=== PATIENT | male | born 1960 | race Caucasian/White ===

== ENCOUNTER 2019-02-09 13:57 | Inpatient (IN) | payer OTHER, MEDICAID ==
[~2019-02-09] VITALS: Ht 157.5 cm; Wt 59.9 kg
[~2019-02-09 13:57] MED LIST: DUTA0.5S2 PO; LORA10TA19 PO; ORTEZLA PO; TAMS0.4C96 PO
--- NOTE | 2019-02-09 13:57 | NUR ---
Patient BIBA BLS, transferred to bed 9. RN evaluating patient at bedside.
[2019-02-09 14:07] VITALS: BP 117/65
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
--- NOTE | 2019-02-09 14:55 | NUR ---
PT RESPONDS APPROPRIATELY TO QUESTIONS BY NODDING YES OR NO. NO SIGNS AND SYMPTOMS OF DISTRESS NOTED. SAFETY ENSURED. WILL CONTINUE TO MONITOR.
--- NOTE | 2019-02-09 15:00 | NUR ---
DR HOANG AT BEDSIDE FOR PT EVALUATION
--- NOTE | 2019-02-09 15:03 | NUR ---
radiology at bedside
--- NOTE | 2019-02-09 15:10 | NUR ---
Dr. Ortega evaluating patient at bedside.
[2019-02-09 15:11] LABS: BASOPHILS # (AUTO) 0.1 K/uL (0.00-0.22); EOSINOPHILS # (AUTO) 0.3 K/uL (0-0.4); EOSINOPHILS % (AUTO) 5.7 % (0.0-4.0); HEMATOCRIT 39.3 % (36-52); HEMOGLOBIN 12.8 g/dL (12.0-18.0); LYMPHOCYTES # (AUTO) 0.8 K/uL (2.0-11.5); LYMPHOCYTES % (AUTO) 12.9 % (20.5-51.1); MEAN CORPUSCULAR HEMOGLOBIN 33 pg (27-31); MEAN CORPUSCULAR HGB CONC 32 g/dL (33-37); MEAN CORPUSCULAR VOLUME 100.8 fL (80-94); MONOCYTES # (AUTO) 0.6 K/uL (0.8-1.0); MONOCYTES % (AUTO) 10.8 % (1.7-9.3); NEUTROPHILS % (AUTO) 68.6 % (42.2-75.2); PLATELET COUNT (AUTO) 279 K/uL (140-450); RED CELL DISTRIBUTION WIDTH 16.1 % (11.6-13.7); WHITE BLOOD COUNT (AUTO) 5.8 K/uL (4.8-10.8)
[2019-02-09 15:13] LABS: APPEARANCE,URINE CLEAR (CLEAR); BILIRUBIN,URINE NEGATIVE (NEGATIVE); BLOOD, URINE 3+ (NEGATIVE); COLOR,URINE YELLOW (YELLOW); LEUKOCYTE ESTERASE ,URINE NEGATIVE (NEGATIVE); NITRITE, URINE NEGATIVE (NEGATIVE); PH,URINE 5.5 (5.0-9.0); UGLUCOSE NEGATIVE (NEGATIVE)
--- NOTE | 2019-02-09 15:15 | NUR ---
Patient taken to CT scan via gurney by CBIT A/S.
[2019-02-09 15:18] LABS: BARBITURATE, URINE NEG. ng/ml (NEG <=200); BENZODIAZEPINE, URINE NEG. ng/mL (NEG <=200); CANNABINOID, URINE NEG. ng/mL (NEG <=50); COCAINE, URINE NEG. ng/mL (NEG <=300); OPIATE, URINE NEG. ng/mL (NEG <=2000); PHENCYCLIDINE SCREEN,URINE NEG. ng/mL (NEG <=25)
[2019-02-09 15:20] LABS: ANION GAP 11.7 (8-16); CARBON DIOXIDE 30.3 mmol/L (21-32); CREATININE 1.2 mg/dL (0.7-1.3)
--- NOTE | 2019-02-09 15:26 | NUR ---
PT TAKEN BACK TO ROOM FROM CT VIA BED BY HOPPER FILLER
[2019-02-09 15:32] LABS: ALBUMIN 2.9 g/dL (3.4-5.0); TOTAL BILIRUBIN 0.3 mg/dL (0.0-1.0)
[2019-02-09 15:37] LABS: RBC,URINE >20 (MANY) /HPF (0-5)
[2019-02-09 15:38] LABS: WBC,URINE 0-5 /HPF (0-5)
--- NOTE | 2019-02-09 16:00 | NUR ---
caregiver at bedside. pt asleep. easily arousable by touch. no signs and symptoms of distress noted. vss. safety ensured. will continue to monitor.
[2019-02-09] MEDS ORDERED: MEX2.5 PO (17:07)
[2019-02-09] MEDS ORDERED: SENN-73 PO (17:07)
[2019-02-09] MEDS ORDERED: [UNRECOGNIZED DRUG - CODE] PO (17:07)
[2019-02-09] MEDS ORDERED: ACET-2619 PO (17:07)
[2019-02-09] MEDS ORDERED: PROP10DR3 OP ×2 (17:07→19:36)
[2019-02-09] MEDS ORDERED: SINE25 PO (17:07)
[2019-02-09] MEDS ORDERED: BUS5 PO (17:07)
[2019-02-09] MEDS ORDERED: PANT40EC PO (17:07)
[2019-02-09] MEDS ORDERED: LEVE750T8 PO (17:07)
[2019-02-09] MEDS ORDERED: [UNRECOGNIZED DRUG - CODE] TP ×2 (17:07→19:40)
[2019-02-09] MEDS ORDERED: NITR0.4T2 SL (17:07)
[2019-02-09] MEDS ORDERED: TAMS0.4C96 PO (17:07)
[2019-02-09] MEDS ORDERED: MONT5CTB22 PO (17:07)
[2019-02-09] MEDS ORDERED: KEN.1O TP ×2 (17:07→19:40)
[2019-02-09] MEDS ORDERED: HYD2.5O TP ×2 (17:07→19:36)
[2019-02-09] MEDS ORDERED: BACI1PAC4 TP (17:07)
[2019-02-09] MEDS ORDERED: FLUO0.052 TP (17:07)
[2019-02-09] MEDS ORDERED: DEXT 5% /NACL 0.9% 1,000 ML IV SCH (17:08)
[2019-02-09] MEDS ORDERED: NACL 0.9% 1,000 ML IV SCH (17:08)
[2019-02-09] MEDS ORDERED: LORazepam 2 MG/ML VIAL IM/IVP PRN (17:10)
[2019-02-09] MEDS ORDERED: ONDANSETRON 4 MG/2 ML VIAL IM/IVP PRN (17:10)
[2019-02-09] MEDS ORDERED: DOCUSATE SODIUM 100 MG GELCAP PO PRN (17:10)
[2019-02-09] MEDS ORDERED: MECLIZINE 25 MG TAB PO PRN (17:20)
--- NOTE | 2019-02-09 17:40 | NUR ---
Patient will be admitted to care of Dr Flores. Admited to Tele. Will go to room 110 b]. Belongings list completed. Report to CLAUDIA Bruno.
[2019-02-09 17:44] LABS: PROTHROMBIN TIME 9.9 secs (10.8-13.4)
[2019-02-09 17:45] VITALS: BP 107/71
--- NOTE | 2019-02-09 17:45 | NUR ---
RECEIVED REPORT FROM EMERGENCY ROOM NURSE FOR CONTINUITY OF CARE. PT IN STABLE CONDITION. RESPIRATIONS EVEN AND UNLABORED, ROOM AIR. IV INTACT AND PATENT. SAFETY MEASURES IN PLACE. SEIZURE PRECAUTIONS IN PLACE. BED IN LOW POSITION. BED ALARM ON. CALL LIGHT AT BEDSIDE. WILL CONTINUE TO MONITOR.
[2019-02-09 17:51] LABS: CHOL/HDL RATIO 2.9 (1-4.5)
[2019-02-09 18:07] LABS: LIPASE 79 U/L (73-393)
[2019-02-09 18:08] LABS: ACETAMINOPHEN < 0.5 ug/ml (10-30); SALICYLATE < 2.8 mg/dL (2.8-20.0); THYROID STIMULATING HORMONE 3.36 uIU/mL (0.34-3.74)
--- NOTE | 2019-02-09 19:16 | NUR ---
GAVE REPORT TO KELP CUTTER NURSE FOR CONTINUITY OF CARE. PT IN STABLE CONDITION.
--- NOTE | 2019-02-09 19:17 | NUR ---
RECEIVED REPORT FROM AM NURSE. PT IN BED SLEEPING IN LEFT LATERAL. PT OPEN EYES TO TOUCH. PT NON-RESPONSIVE AT THIS TIME. FLACC 0. ON ROOM AIR. BREATHING UNLABORED. LEFT FOREARM 22G INTACT AND PATENT TO FLUSH. PT ON SEIZURE PRECAUTIONS, SIDE RAILS PADDED. PT ON FALL PRECAUTION, BED ALARM ON, BED IN LOWEST POSITION. PT HELMET AT BEDSIDE. URINAL AT BEDSIDE. CALL LIGHT WITHIN REACH. WILL CONTINUE TO MONITOR.
[2019-02-09] MEDS ORDERED: ATA25 PO (19:36)
[2019-02-09] MEDS ORDERED: NITROGLYCERIN 0.4 MG TAB SL PRN (19:40)
[2019-02-09 20:00] VITALS: BP 115/65
[2019-02-09] MEDS ORDERED: LORazepam 2 MG/ML VIAL IVP PRN (20:10)
[2019-02-09] MEDS ORDERED: PROPYLENE GLYCOL OP SCH (21:00)
[2019-02-09] MEDS ORDERED: MINOCYCLINE 100MG CAPSULE PO SCH (21:00)
[2019-02-09] MEDS ORDERED: PEG OP SCH (21:00)
[2019-02-09] MEDS: busPIRone 5 MG TAB PO SCH (21:00)
[2019-02-09] MEDS ORDERED: TRIAMCINOLONE 0.1% OINT 15 GM TUBE TP SCH (21:00)
[2019-02-09] MEDS: SENNA 8.6 MG TAB PO SCH (21:00)
[2019-02-09] MEDS ORDERED: WITCH HAZEL TP SCH (21:00)
[2019-02-09] MEDS ORDERED: FLUOCINONIDE 0.05% TP SCH (21:00)
[2019-02-09] MEDS ORDERED: levETIRAcetam 1,500 MG in NACL 0.9% 100 ML IV SCH (21:00)
--- NOTE | 2019-02-09 21:05 | NUR ---
ATTEMPTED TO GIVE PT PO MEDICATIONS. PT NOT RESPONSIVE TO NAME. PT OPENS EYES TO SOUND BUT NOT TO NAME. PT WITHDRAWALS HAND WHEN ARM IS MOVED. NURSE EXPLAINED TO PT THAT IT WAS TIME FOR MEDICATION. PT NON-VERBAL AND CONTINUES TO KEEP EYES CLOSED. BREATHING EQUAL AND UNLABORED. NO VISIBLE SIGNS OF DISTRESS. DR. CONTRERAS AWARE OF PT REFUSAL TO TAKE MEDICATION.
[2019-02-09] MEDS ORDERED: levETIRAcetam 100 MG/ML VIAL IV ONE (21:37)
--- NOTE | 2019-02-09 21:55 | NUR ---
PHARMACY CALLED TO CLARIFY MED ORDERS FOR TRIAMCIOLONE AND FLUCINOIDE. PHARMACY ASKED TO CLARIFY IF MINOCYCLINE IS A HOME MEDICATION. PER DR. EL ERVIN TO USE TRIMACIOLONE. MINOCYCLINE IS A HOME MEDICATION. WILL ENDORSE WITH AM NURSE TO CALL FOR MEDICATION TO BE BROUGHT FROM HOME.
--- NOTE | 2019-02-09 23:57 | NUR ---
VITALS TAKEN. PT SLEEPING WITH ARMS CROSSED. PT MOVES WITH SHAKING BUT WILL NOT UNCROSS ARMS. NURSE EXPLAINS THE NEED TO TAKE VITALS. ATTEMPTED TO UNCROSS ARMS AND PT OPENS EYES BUT IS STILL NON-VERBAL. PT PROCEEDS TO RE-CROSS ARMS. BP TAKEN ON RIGHT LEG, PT COMPLIANT. MOTTLER OPERATOR ASKED TO INFORM NURSE WHEN PT URINATES. MOTTLER OPERATOR VERBALIZES UNDERSTANDING. WILL CONTINUE TO MONITOR.
[2019-02-10] VITALS (8 sets, daily range): BP systolic 103–146; BP diastolic 57–83
--- NOTE | 2019-02-10 01:12 | NUR ---
LEFT UPPER FOREARM IV 22G D/C DUE TO OCCLUSION. CANNULA INTACT UPON D/C. NEW IV ACCESS STARTED ON LEFT LOWER FOREARM 22G. PT TOLERATED WELL.
--- NOTE | 2019-02-10 02:37 | NUR ---
ROUNDED ON PT. PT SLEEPING, BREATHING EQUAL AND UNLABORED. NO VISIBLE SIGNS OF DISTRESS. WILL CONTINUE TO MONITOR.
--- NOTE | 2019-02-10 04:00 | NUR ---
RN TRAINING PRESSED CALL LIGHT FOR NURSE. PT STANDING AT SIDE OF BED WITH RN TRAINING. NURSE ASKED PT IF HE NEEDED TO USE THE BATHROOM. PT NODDED HIS HEAD YES. NURSE AND RN TRAINING ASSISTED PT TO BATHROOM. PT PROCEEDED TO URINATE. BED WAS CLEANED, PT POSITIONED FOR COMFORT. VITALS TAKEN AT THIS TIME. PT ABLE TO VERBALIZE AND IS COOPERATIVE WITH NURSE AND RN TRAINING.
--- NOTE | 2019-02-10 06:10 | NUR ---
ROUNDED ON PT. PT SITTING AWAKE IN BED. FLACC 0. BED ALARM ON, BED IN LOWEST POSITION. URINAL AT BEDSIDE. CALL LIGHT WITHIN REACH.
[2019-02-10 06:59] LABS: BASOPHILS # (AUTO) 0.1 K/uL (0.00-0.22); BASOPHILS % (AUTO) 2.5 % (0.0-2.0); EOSINOPHILS # (AUTO) 0.3 K/uL (0-0.4); EOSINOPHILS % (AUTO) 7.3 % (0.0-4.0); HEMATOCRIT 38.7 % (36-52); HEMOGLOBIN 12.6 g/dL (12.0-18.0); LYMPHOCYTES # (AUTO) 0.5 K/uL (2.0-11.5); LYMPHOCYTES % (AUTO) 12.6 % (20.5-51.1); MEAN CORPUSCULAR HEMOGLOBIN 33 pg (27-31); MEAN CORPUSCULAR HGB CONC 33 g/dL (33-37); MEAN CORPUSCULAR VOLUME 100.6 fL (80-94); MONOCYTES # (AUTO) 0.5 K/uL (0.8-1.0); NEUTROPHILS # (AUTO) 2.8 K/uL (1.8-7.7); NEUTROPHILS % (AUTO) 65.6 % (42.2-75.2); PLATELET COUNT (AUTO) 243 K/uL (140-450); RED BLOOD CELL COUNT(AUTO) 3.85 MIL/uL (4.20-6.10); RED CELL DISTRIBUTION WIDTH 16.1 % (11.6-13.7); WHITE BLOOD COUNT (AUTO) 4.3 K/uL (4.8-10.8)
--- NOTE | 2019-02-10 07:05 | NUR ---
ENDORSED PT TO AM NURSE. PT STABLE AT THIS TIME.
--- NOTE | 2019-02-10 07:06 | NUR ---
RECEIVED REPORT FROM DIAGRAMMER NURSE. PATIENT SITTING DOWN IN BED COMFORTABLY. NO DISTRESS NOTED. DENIES ANY PAIN. AAOX2, CALM, COOPERATIVE, SKIN COLOR APPROPRIATE TO ETHNICITY, WARM TO TOUCH. HAS PSORIASIS RASHES/PATCHES THROUGHOUT BODY. IV SITE INTACT, PATENT, AND INFUSING IVF PER MD ORDERS. ABDOMEN SOFT, NON-DISTENDED. LUNGS CTA ON ALL LOBES. REVIEWED PLAN OF CARE WITH PATIENT. PATIENT VERBALIZED UNDERSTANDING. SAFETY MEASURES IN PLACE, CALL LIGHT WITHIN REACH. WILL CONTINUE TO MONITOR.
[2019-02-10 07:32] LABS: ANION GAP 10.4 (8-16); CARBON DIOXIDE 30.4 mmol/L (21-32); POTASSIUM 3.8 mmol/L (3.5-5.1)
[2019-02-10 07:38] LABS: PHOSPHORUS 3.2 mg/dL (2.5-4.9)
[2019-02-10 08:11] LABS: T4 (THYROXINE) 5.2 ug/dL (4.5-12.0)
[2019-02-10] MEDS ORDERED: COMMUNICATION ORDER MC PRN (08:35)
[2019-02-10] MEDS: busPIRone 5 MG TAB PO SCH ×2 (08:49→21:18)
[2019-02-10] MEDS: levETIRAcetam 500 MG TAB PO SCH ×2 (08:50→21:17)
[2019-02-10] MEDS: SENNA 8.6 MG TAB PO SCH ×2 (08:50→21:17)
[2019-02-10] MEDS: MONTELUKAST SODIUM 10 MG TAB PO SCH (08:50)
[2019-02-10] MEDS: PANTOPRAZOLE 40 MG TABEC PO SCH (08:50)
[2019-02-10] MEDS: TAMSULOSIN 0.4 MG CAP PO SCH (08:50)
[2019-02-10] MEDS: HYDROCORTISONE 2.5% OINT 30 GM TUBE TP SCH ×2 (08:53→21:07)
[2019-02-10] MEDS: TRIAMCINOLONE 0.1% OINT 15 GM TUBE TP SCH ×2 (08:53→21:07)
[2019-02-10] MEDS ORDERED: METHOTREXATE 2.5 MG TAB PO SCH (09:00)
[2019-02-10] MEDS ORDERED: levETIRAcetam 500 MG TAB PO SCH (09:00)
--- NOTE | 2019-02-10 09:10 | NUR ---
PATIENT HAS BEEN SCREENED AND CATEGORIZED HIGH NUTRITION RISK. PATIENT WILL BE SEEN WITHIN 1-2 DAYS OF ADMISSION. 02/10/19-02/11/[address]
--- NOTE | 2019-02-10 09:10 | NUR ---
PATIENT SITTING IN BED. NO DISTRESS NOTED. BEDSIDE SWALLOW EVAL PERFORMED BY RN PER DR. RALPH REQUESTS. PATIENT ABLE TO TOLERATE PO ICE, APPLESAUCE, AND ABLE TO TAKE SCHEDULED PO MEDICATIONS WHOLE WITHOUT ANY PROBLEMS. WILL NOTIFY MD. WILL CONTINUE TO MONITOR.
[2019-02-10] MEDS: NACL 0.45% 1,000 ML IV SCH (10:10)
[2019-02-10] MEDS: POLYVINYL ALCOHOL 1.4% OP 15 ML SOL BOTH EYES SCH ×4 (10:10→21:08)
--- NOTE | 2019-02-10 10:28 | NUR ---
BLADDER SCAN PERFORMED, 118 ML IN BLADDER.
[2019-02-10] MEDS: WITCH HAZEL 40 PAD PACKAGE TP SCH ×2 (10:42→21:07)
--- NOTE | 2019-02-10 11:37 | NUR ---
PATIENT LYING DOWN IN BED SLEEPING, AROUSABLE BY VOICE. NO DISTRESS NOTED. CONDITION UNCHANGED. WILL CONTINUE TO MONITOR.
[2019-02-10] MEDS: HYDRAGUARD CREAM TP SCH (12:20)
--- NOTE | 2019-02-10 12:54 | NUR ---
S.T. BEDSIDE SWALLOW EVAL COMPLETED See report for details. Pt presents w/ adequate oropharyngeal swallow function for textures given from mechanical soft lunch tray. No overt s/s aspiration observed across all textures. Pt able to self-feed for liquids via cup/straw, but unable to coordinate use of regular utensils using bedside tray table. Recommend: 1) Continue mechanical soft diet, thin liquids with straw okay. 2) 1:1 feeder to assist with solids and cutting food. 3) P.O. meds as tolerated. No further tx indicated at this time as pt appears to be functioning at baseline. DC to [facility]. Endorsed to CLAUDIA Mg. Time [id number]
--- NOTE | 2019-02-10 13:50 | NUR ---
TRANSFERRED PATIENT TO NEW ROOM VIA WHEELCHAIR. PATIENT ANXIOUS ON NEW ROOM SURROUNDINGS. WILL CONTINUE TO MONITOR.
--- NOTE | 2019-02-10 14:38 | NUR ---
02/10/19 RD INITIAL ASSESSMENT COMPLETED PLEASE REFER TO NUTRITION ASSESSMENT UNDER CARE ACTIVITY FOR ESTIMATED NUTRITIONAL NEEDS. 1. CONTINUE MECHANICAL SOFT DIET DIET TOLERATED 2. RD TO FOLLOW-UP 5-7 DAYS, LOW RISK [address] RD
--- NOTE | 2019-02-10 16:00 | NUR ---
PATIENT TEMPERATURE 99.8, COOLING MEASURES APPLIED TO PREVENT FEVER. WILL CONTINUE TO MONITOR.
--- NOTE | 2019-02-10 17:38 | NUR ---
PATIENT PULLED OUT IV LINE. WILL INSERT NEW IV LINE. SCHEDULED MEDICATIONS DUE GIVEN. WILL CONTINUE TO MONITOR.
--- NOTE | 2019-02-10 18:47 | NUR ---
CALLED MARIA C, CAREGIVER AT [phone] AND SPOKE TO HER REGARDING MEDICATION THAT WE DO NOT HAVE HERE, MINOCYLCINE. PER MARIA C, SHE WILL CALL THE FACILITY AND TRY TO HAVE SOMEONE BRING IT IN TONIGHT. IF NOT, SHE WILL COME TOMORROW MORNING.
--- NOTE | 2019-02-10 19:14 | NUR ---
REPORT GIVEN TO SHEET ROLLER OPERATOR NURSE FOR CONTINUITY OF CARE. PATIENT IN STABLE CONDITION.
--- NOTE | 2019-02-10 19:15 | NUR ---
REPORT RECEIVED FROM AM NURSE. PT SITTING UP IN BED, NO VISIBLE SIGNS OF DISTRESS. PT IS VERBAL BUT MUMBLES. ON ROOM AIR, BREATHING EQUAL AND UNLABORED. IV LEFT FOREARM 20G INTACT AND INFUSING WELL. ON FALL PRECAUTIONS, BED IN LOW POSITION AND BED ALARM ON. HELMET AT BEDSIDE. CALL LIGHT WITHIN REACH. WILL CONTINUE TO MONITOR.
--- NOTE | 2019-02-10 19:50 | NUR ---
CAREGIVER RAPHAEL DROPPED OFF PT SUPPLY OF MINOCYCLINE. PLACED IN BAG FOR PHARMACY.
--- NOTE | 2019-02-10 20:00 | NUR ---
PT REFUSED TO HAVE VITALS TAKEN.
--- NOTE | 2019-02-10 20:30 | NUR ---
PT PULLED OUT LEFT FOREARM IV. CANNULA INTACT. PT STATED THAT HE NEEDS TO URINATE. PT ASSISTED BY NURSE AND TECHNICAL SALES SUPPORT SPECIALIST TO BATHROOM.
[2019-02-10] MEDS: ACETAMINOPHEN 325 MG TAB PO PRN (21:15)
--- NOTE | 2019-02-10 21:15 | NUR ---
ADMINISTERED MEDICATION TO PT. PT TOLERATED WELL. GIVEN TYLENOL FOR 3/10 PAIN USING FLACC. PT REPOSITIONED FOR COMFORT.
--- NOTE | 2019-02-10 22:00 | NUR ---
NEW IV ACCESS STARTED ON RIGHT WRIST 22G. SITE WRAPPED WITH GAUZE TO DETER PT FROM PULLING OUT.
[2019-02-11] VITALS (7 sets, daily range): BP systolic 75–143; BP diastolic 50–90
--- NOTE | 2019-02-11 00:10 | NUR ---
PT DISCONNECTED IV TUBING. IV CANNULA STILL IN PLACE IN RIGHT WRIST. PT BEDDING CHANGED. PT IV TUBING REATTACHED. ARM REWRAPPED WITH GAUZE. ARM PLACED UNDER BLANKETS OUT OF SIGHT.
[2019-02-11] MEDS ORDERED: NACL 0.9% 1,000 ML IV ONE (01:00)
--- NOTE | 2019-02-11 01:00 | NUR ---
NOTIFIED RESIDENT MD OF PTS BP OF 75/50. RESIDENT MD ASKED FOR IT TO BE REASSESED. INFORMED RESIDENT MD THAT THIS WAS THE 4TH BP READING. DR. CARTWRIGHT ASSISTED TO RETAKE BP. BP 76/43 AT TIME OF REASSESSMENT. PER DR. CARTWRIGHT ORDERS TO GIVE PT NS BOLUS 1000ML. WILL REASSESS BP AFTER COMPLETION OF BOLUS
[2019-02-11] MEDS: HYDRAGUARD CREAM TP SCH ×2 (01:28→13:00)
--- NOTE | 2019-02-11 01:46 | NUR ---
CHECK ON PT. PT AWAKE IN BED. PT STATING THAT HE'S "COLD". PT CURRENTLY HAS 3 BLANKETS. OFFERED TO HELP COVER PT ARMS WITH THE BLANKETS BUT PT REFUSES. WILL CONTINUE TO MONITOR.
--- NOTE | 2019-02-11 02:00 | NUR ---
FLUID BOLUS FINISHED. PT IS REFUSING TO HAVE BLOOD PRESSURE TAKEN. ATTEMPTED TO TAKE BP ON ARM AND LEG. PT IS PULLING AWAY. WILL NOTIFY RESIDENT .
--- NOTE | 2019-02-11 02:15 | NUR ---
DR. CARTWRIGHT CAME IN TO SEE THE PT ALONG WITH CHARGE NURSE. PT IS STILL REFUSING TO HAVE HIS BLOOD PRESSURE TAKEN. PT IS ATTEMPTING TO PULL OUT IV. PT IS NOT REDIRECTABLE AT THIS TIME. CHARGE NURSE REINFORCED IV DRESSING AND GAUZE, ALSO APPLIED CREAM TO DETER PT FROM PICKING OR SCRATCHING AT HAND. PER DR. CARTWRIGHT PT APPEARS OKAY. WILL LEAVE PT IN BED TO CALM DOWN. SAFETY MEASURES IN PLACE. BED ALARM ON. WILL CONTINUE TO MONITOR.
[2019-02-11] MEDS: ACETAMINOPHEN 325 MG TAB PO PRN (03:19)
--- NOTE | 2019-02-11 03:19 | NUR ---
PT ATTEMPTING TO GET OUT OF BED. PT HOLDING HEAD AND SAYING "IT HURTS". NURSE ASKED IF PT HEAD HURT, PT REPLIED WITH "YES". GAVE TYLENOL FOR 2/10 FLACC PAIN LEVEL.
--- NOTE | 2019-02-11 04:40 | NUR ---
VITALS TAKEN. PT BEING COOPERATIVE. NO VISIBLE SIGNS OF DISCOMFORT.
[2019-02-11] MEDS: NACL 0.45% 1,000 ML IV SCH (05:45)
[2019-02-11 05:52] LABS: ANION GAP 13.2 (8-16); CARBON DIOXIDE 27.5 mmol/L (21-32); CREATININE 1.2 mg/dL (0.7-1.3); POTASSIUM 3.7 mmol/L (3.5-5.1)
[2019-02-11 06:00] LABS: MAGNESIUM 1.9 mg/dL (1.8-2.4); PHOSPHORUS 3.2 mg/dL (2.5-4.9)
[2019-02-11 06:59] LABS: BASOPHILS # (AUTO) 0.2 K/uL (0.00-0.22); BASOPHILS % (AUTO) 1.2 % (0.0-2.0); EOSINOPHILS # (AUTO) 0.4 K/uL (0-0.4); EOSINOPHILS % (AUTO) 2.5 % (0.0-4.0); HEMATOCRIT 32.8 % (36-52); HEMOGLOBIN 10.9 g/dL (12.0-18.0); LYMPHOCYTES # (AUTO) 1.3 K/uL (2.0-11.5); LYMPHOCYTES % (AUTO) 8.9 % (20.5-51.1); MEAN CORPUSCULAR HEMOGLOBIN 33 pg (27-31); MEAN CORPUSCULAR HGB CONC 33 g/dL (33-37); MEAN CORPUSCULAR VOLUME 99.8 fL (80-94); MONOCYTES # (AUTO) 1.5 K/uL (0.8-1.0); MONOCYTES % (AUTO) 10.4 % (1.7-9.3); PLATELET COUNT (AUTO) 209 K/uL (140-450); RED BLOOD CELL COUNT(AUTO) 3.29 MIL/uL (4.20-6.10); RED CELL DISTRIBUTION WIDTH 16.1 % (11.6-13.7); WHITE BLOOD COUNT (AUTO) 14.3 K/uL (4.8-10.8)
--- NOTE | 2019-02-11 07:16 | NUR ---
ENDORSED PT TO AM NURSE. PT IN STABLE CONDITION AT THIS TIME.
[2019-02-11] MEDS ORDERED: LEVE1000 PO (07:35)
--- NOTE | 2019-02-11 07:40 | NUR ---
PATIENT WAS AWAKE, RESPONSIVE TO NAME. RESPIRATION EVEN, UNLABOR ON ROOM AIR. SKIN DRY AND WARM. IV PATENT AND INTACT. FLACC 0. PLAN OF CARE WAS DISCUSSED WITH PATIENT, HOWEVER PT UNABLE TO COMPREHEND. PLAN OF CARE WAS DISCUSSED WITH PATIENT. BED AT LOW POSITION, SIDE RAILS UP. CALL LIGHT WITHIN REACH
[2019-02-11] MEDS: TRIAMCINOLONE 0.1% OINT 15 GM TUBE TP SCH ×2 (08:49→20:58)
[2019-02-11] MEDS: busPIRone 5 MG TAB PO SCH ×2 (08:49→20:56)
[2019-02-11] MEDS: POLYVINYL ALCOHOL 1.4% OP 15 ML SOL BOTH EYES SCH ×4 (08:49→20:56)
[2019-02-11] MEDS: TAMSULOSIN 0.4 MG CAP PO SCH (08:49)
[2019-02-11] MEDS: MONTELUKAST SODIUM 10 MG TAB PO SCH (08:50)
[2019-02-11] MEDS: PANTOPRAZOLE 40 MG TABEC PO SCH (08:50)
[2019-02-11] MEDS: SENNA 8.6 MG TAB PO SCH ×2 (08:50→20:57)
[2019-02-11] MEDS: levETIRAcetam 500 MG TAB PO SCH ×2 (08:50→20:41)
[2019-02-11] MEDS: HYDROCORTISONE 2.5% OINT 30 GM TUBE TP SCH ×2 (08:51→20:58)
[2019-02-11] MEDS: WITCH HAZEL 40 PAD PACKAGE TP SCH ×2 (08:52→20:59)
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
--- NOTE | 2019-02-11 10:31 | NUR ---
PATIENT WAS FOUND TRYING TO GET OUT OF BED, PULLING OUT IV. PATIENT WAS REORIENTED TO STAY IN BED FOR THE RISK FOR FALL. IV LINE WAS REMOVED, WILL NOTIFY MD. BED ALARM ACTIVE
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
[2019-02-11] MEDS ORDERED: COMMUNICATION ORDER MC PRN ×2 (10:40→17:20)
--- NOTE | 2019-02-11 10:45 | NUR ---
PATIENT PULLED OFF THE IV, CATHETER INTACT, BLEEDING WAS CONTROLLED. PATIENT ALSO PULLED OUT PHYS ASSISTANT, REFUSED TO GO BACK TO BED. DR. PHAM WAS MADE AWARE. SITTER WAS ORDERED
[2019-02-11] MEDS ORDERED: PERMETHRIN 5% 60 GM TUBE TP SCH ×2 (11:00→14:30)
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
--- NOTE | 2019-02-11 11:32 | NUR ---
CALLED [facility] SPOKE WITH MOLLY YOUNG JUNIOR COPYWRITER PER MOLLY PATIENT IS LIVING WITH THEM FOR THE LAST 2 YRS AND UPDATED ALL THE INFORMATION ON THE FACE SHEET
--- NOTE | 2019-02-11 12:00 | NUR ---
PATIENT IS RESTING COMFORTABLY IN BED. RESPIRATION EVEN, UNLABOR ON ROOM AIR. NO DISTRESS NOTED AT THIS TIME
--- NOTE | 2019-02-11 13:30 | NUR ---
PATIENT WAS FOUND WALKING THE HALLWAY, REFUSED TO GO BACK TO HIS ROOM. MULTIPLE ATTEMPTS WERE MADE TO EXPLAIN TO PATIENT THAT HE IS AT RISK FOR FALL, HE NEEDS TO GO BACK TO HIS ROOM. PATIENT STARTED SCREAMING "LEAVE ME ALONE". SECURITY WAS CALLED. DR. RALPH WAS MADE AWARE. CARE PROVIDER MOLLY YOUNG WAS CALLED AND LEFT A VOICEMAIL REGARDING HIS CONDITION.
--- NOTE | 2019-02-11 13:41 | NUR ---
LEVI called patient's C Break Out Man Sher Terrazas [phone] to inform Ju of patient's admission. Ju stated that she has been updated by patient's caregiver Adrianna Estrada [phone]. LEVI will follow up as needed.
--- NOTE | 2019-02-11 14:00 | NUR ---
PATIENT REFUSED TO HAVE THE CHIEF AIRLINE RADIO OPERATOR PLACED ON. MD WAS MADE AWARE
[2019-02-11] MEDS: LORazepam 2 MG/ML VIAL IM/IVP PRN (14:10)
[2019-02-11] MEDS ORDERED: LORazepam 2 MG/ML VIAL IM/IVP ONE (14:15)
[2019-02-11] MEDS ORDERED: HALOPERIDOL IM 5 MG/ML VIAL IM SCH ×3 (14:30→20:15)
[2019-02-11] MEDS ORDERED: HALOPERIDOL IM 5 MG/ML VIAL ONE (14:36)
--- NOTE | 2019-02-11 14:55 | NUR ---
SPOKE WITH DR. RALPH CONCERNING PT AND COLLECTION OF SPUTUM PT IS AWAKE AND AGITATED AT THIS TIME UNABLE TO GET SPUTUM AT THIS TIME
--- NOTE | 2019-02-11 15:45 | NUR ---
PATIENT WAS RESTING COMFORTABLY IN BED. CREAM WAS APPLIED PER ORDER. PATIENT WAS AGITATED. PATIENT WAS EXPLAINED THE NEED FOR MEDICATION. CAREGIVER WAS AT BEDSIDE
--- NOTE | 2019-02-11 16:00 | NUR ---
PATIENT WAS AGITATED, REFUSED TO GO BACK TO HIS ROOM. PATIENT WAS ESCORTED BACK TO ROOM BY SECURITY. MEDS WERE GIVEN PER ORDER. PATIENT WAS SCREAMING, KICKING, AND HITTING STAFF. DR. RALPH WAS AT BEDSIDE. Addendum: 02/11/19 at 1601 by Vangie Dunham RN CORRECTION: NOTED TIME IS 1430
--- NOTE | 2019-02-11 16:58 | NUR ---
NEW IV 22G WAS INSERTED TO RIGHT FOREARM. PATIENT TOLERATED WELL
[2019-02-11] MEDS ORDERED: DIAZEPAM 5 MG TAB PO SCH (17:30)
--- NOTE | 2019-02-11 18:00 | NUR ---
PATIENT WAS PACING AROUND IN THE ROOM, REFUSED TO GO BACK TO BED. SITTER IS ENSURED. DR. RALPH WAS MADE AWARE OF PATIENT TENDENCY OF PULLING OUT IV. HOLD IV ANTIBIOTIC AT THIS TIME PER MD
[2019-02-11] MEDS: QUEtiapine FUMARATE 25 MG TAB PO SCH ×2 (18:12→20:58)
[2019-02-11] MEDS: PIPER/TAZO 3.375GM/D5W PREMIX 50 ML IV SCH (18:41)
--- NOTE | 2019-02-11 19:14 | NUR ---
ENDORSEMENT GIVEN TO COPPER FLOTATION OPERATOR NURSE. PATIENT IS STABLE AT THIS TIME
--- NOTE | 2019-02-11 19:18 | NUR ---
RECEIVED REPORT FROM AM NURSE. PT SITTING ON EDGE OF BED PLAYING WITH GOWN. SITTER AT BEDSIDE. PT APPEARS AGITATED. BREATHING UNLABORED ON ROOM AIR. LEFT FOREARM 22G INTACT. WILL CONTINUE TO MONITOR.
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
[2019-02-11] MEDS: MINOCYCLINE 100MG CAPSULE PO SCH (20:46)
--- NOTE | 2019-02-11 22:00 | NUR ---
PT STANDING UP AT BEDSIDE NODDING OFF. SITTER AT SIDE FOR SUPPORT. ATTEMPTED TO HAVE PT GET BACK INTO BED. BP OF PT TAKEN WHILE STANDING. PT REFUSES TO HAVE OTHER VITALS TAKEN AT THIS TIME. Addendum: 02/12/19 at 0646 by Zoie Cohen RN WRONG TIME. ACCURATE TIME 1999
--- NOTE | 2019-02-11 22:45 | NUR ---
PT SITTING ON EDGE OF BED PLAYING WITH SOCK. SITTER AT BEDSIDE.
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
[2019-02-12] MEDS: LORazepam 2 MG/ML VIAL IM/IVP PRN (00:31)
--- NOTE | 2019-02-12 00:31 | NUR ---
ATIVAN GIVEN TO PT FOR AGITATION. PT TOO AGITATED FOR VITALS TO BE TAKEN.
[2019-02-12] MEDS: HYDRAGUARD CREAM TP SCH ×2 (01:00→13:05)
--- NOTE | 2019-02-12 01:25 | NUR ---
LAB CALLED TO RELAY PT MRSA NARES IS POSITIVE. RESIDENT AWARE.
[2019-02-12] MEDS: PIPER/TAZO 3.375GM/D5W PREMIX 50 ML IV SCH ×4 (01:44→18:18)
--- NOTE | 2019-02-12 01:45 | NUR ---
PT SLEEPING IN BED. BREATHING EQUAL AND UNLABORED. SITTER AT BEDSIDE.
[2019-02-12] MEDS: NACL 0.45% 1,000 ML IV SCH ×2 (03:07→21:45)
[2019-02-12 04:00] VITALS: BP 119/58
--- NOTE | 2019-02-12 04:00 | NUR ---
VITALS TAKEN ON PT. PT SLEEPING THROUGH VITALS. BREATHING EQUAL AND UNLABORED. NO VISIBLE SIGNS OF DISTRESS. SITTER AT BEDSIDE.
[2019-02-12] MEDS: MUPIROCIN CA NASAL 2% 1GM TUBE NS SCH (06:00)
[2019-02-12] MEDS: CHLORHEXADINE GLUC 2% CLOTH TP SCH (06:23)
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
[2019-02-12 06:46] LABS: ANION GAP 15.1 (8-16); CARBON DIOXIDE 26.2 mmol/L (21-32); CREATININE 1.2 mg/dL (0.7-1.3); POTASSIUM 4.3 mmol/L (3.5-5.1)
[2019-02-12 06:57] LABS: BASOPHILS # (AUTO) 0.1 K/uL (0.00-0.22); BASOPHILS % (AUTO) 1.9 % (0.0-2.0); EOSINOPHILS # (AUTO) 0.4 K/uL (0-0.4); EOSINOPHILS % (AUTO) 4.8 % (0.0-4.0); HEMATOCRIT 34.8 % (36-52); HEMOGLOBIN 11.4 g/dL (12.0-18.0); LYMPHOCYTES # (AUTO) 0.9 K/uL (2.0-11.5); LYMPHOCYTES % (AUTO) 11.3 % (20.5-51.1); MEAN CORPUSCULAR HEMOGLOBIN 33 pg (27-31); MEAN CORPUSCULAR HGB CONC 33 g/dL (33-37); MEAN CORPUSCULAR VOLUME 99.5 fL (80-94); NEUTROPHILS # (AUTO) 5.4 K/uL (1.8-7.7); PLATELET COUNT (AUTO) 215 K/uL (140-450); RED CELL DISTRIBUTION WIDTH 16.5 % (11.6-13.7); WHITE BLOOD COUNT (AUTO) 7.7 K/uL (4.8-10.8)
[2019-02-12 06:58] LABS: MAGNESIUM 1.9 mg/dL (1.8-2.4); PHOSPHORUS 3.9 mg/dL (2.5-4.9)
--- NOTE | 2019-02-12 07:25 | NUR ---
ENDORSED PT TO AM NURSE. PT IN STABLE CONDITION.
--- NOTE | 2019-02-12 07:26 | NUR ---
RECEIVED REPORT FROM CENTER MACHINE SET UP OPERATOR NURSE NOVEMBER FOR CONTINUITY OF CARE. PT IN STABLE CONDITION. RESPIRATIONS EVEN AND UNLABORED. IV INTACT AND PATENT. BED IN LOW POSITION. BED ALARM ON. CALL LIGHT AT BEDSIDE. WILL CONTINUE TO MONITOR.
[2019-02-12 08:00] VITALS: BP 114/62
--- NOTE | 2019-02-12 08:35 | NUR ---
MARIA C (CAREGIVER) VISITING PT. EXPRESSED CONCERNS. OFFERED TO GET THE DOCTOR PT REFUSED OFFER TO SEE DOCTOR. CHARGE NURSE AT SIDE. ALL QUESTIONS ANSWERED AT THIS TIME.
--- NOTE | 2019-02-12 09:15 | NUR ---
GAVE ORDERED DUE MEDICATIONS. PT TOLERATED WELL. RESPIRATIONS EVEN AND UNLABORED. SITTER AT BEDSIDE. BED IN LOW POSITION. BED ALARM ON. CALL LIGHT AT BEDSIDE. WILL CONTINUE TO MONITOR.
[2019-02-12] MEDS: POLYVINYL ALCOHOL 1.4% OP 15 ML SOL BOTH EYES SCH ×4 (10:00→21:00)
--- NOTE | 2019-02-12 10:24 | NUR ---
KENNEL STAFF MEMBER CHANGING AND CLEANING AFTER URINATION. PT TOLERATED WELL. RESPIRATIONS EVEN AND UNLABORED. SITTER AT BEDSIDE. BED IN LOW POSITION. BED ALARM ON. CALL LIGHT AT BEDSIDE.
[2019-02-12] MEDS: QUEtiapine FUMARATE 25 MG TAB PO SCH ×2 (10:59→21:21)
[2019-02-12] MEDS: levETIRAcetam 500 MG TAB PO SCH ×2 (10:59→21:20)
[2019-02-12] MEDS: busPIRone 5 MG TAB PO SCH ×2 (11:00→21:19)
[2019-02-12] MEDS: LACTOBACILLUS RHAMNOSUS GG 1 EACH CAP PO SCH (11:01)
[2019-02-12] MEDS: MONTELUKAST SODIUM 10 MG TAB PO SCH (11:02)
[2019-02-12] MEDS: SENNA 8.6 MG TAB PO SCH ×2 (11:02→21:20)
[2019-02-12] MEDS: PANTOPRAZOLE 40 MG TABEC PO SCH (11:02)
[2019-02-12] MEDS: TAMSULOSIN 0.4 MG CAP PO SCH (11:02)
[2019-02-12] MEDS: MINOCYCLINE 100MG CAPSULE PO SCH ×2 (11:03→21:21)
[2019-02-12] MEDS: HYDROCORTISONE 2.5% OINT 30 GM TUBE TP SCH ×2 (11:12→21:00)
[2019-02-12] MEDS: WITCH HAZEL 40 PAD PACKAGE TP SCH ×2 (11:13→21:00)
[2019-02-12] MEDS: TRIAMCINOLONE 0.1% OINT 15 GM TUBE TP SCH ×2 (11:13→21:00)
--- NOTE | 2019-02-12 11:33 | NUR ---
PT SLEEPING AT THIS TIME. RESPIRATIONS EVEN AND UNLABORED. SITTER AT BEDSIDE. BED IN LOW POSITION. BED ALARM ON. CALL LIGHT AT BEDSIDE. WILL CONTINUE TO MONITOR.
[2019-02-12 12:00] VITALS: BP 109/60
--- NOTE | 2019-02-12 12:00 | NUR ---
PT IN SHOWER AT THIS TIME WITH 2 TRAVEL RN OR (JEFFERSON) ASSISTING. PT TOLERATING WELL. RINSING OFF CREAM USED TO TREAT SCABIES.
--- NOTE | 2019-02-12 14:15 | NUR ---
PT SLEEPING AT THIS TIME RESPIRATIONS EVEN AND UNLABORED. SITTER AT BEDSIDE. BED ALARM ON. BED IN LOW POSITION. WILL CONTINUE TO MONITOR.
--- NOTE | 2019-02-12 15:12 | NUR ---
FOUNDRY FINISHER CHANGING AND CLEANING AFTER URINATION. PT TOLERATED WELL. RESPIRATIONS EVEN AND UNLABORED. SITTER AT BEDSIDE. BED IN LOW POSITION. BED ALARM ON. CALL LIGHT AT BEDSIDE.
[2019-02-12 16:00] VITALS: BP 124/68
--- NOTE | 2019-02-12 16:16 | NUR ---
PT SLEEPING AT THIS TIME RESPIRATIONS EVEN AND UNLABORED. SITTER AT BEDSIDE. BED ALARM ON. BED IN LOW POSITION. WILL CONTINUE TO MONITOR.
[2019-02-12] MEDS ORDERED: IVERMECTIN 3MG TAB PO SCH (18:00)
--- NOTE | 2019-02-12 18:00 | NUR ---
GAVE ORDERED DUE MEDICATIONS AND THIS TIME. RESPIRATIONS EVEN AND UNLABORED. SITTER AT BEDSIDE. BED IN LOW POSITION. BED ALARM ON. WILL CONTINUE TO MONITOR.
--- NOTE | 2019-02-12 19:19 | NUR ---
GAVE REPORT TO PRICK STITCHER NURSE ALBERTO FOR CONTINUITY OF CARE. PT IN STABLE CONDITION.
--- NOTE | 2019-02-12 19:20 | NUR ---
RECEIVED REPORT FROM BALAJI TAYLOR DAYSHIFT AT BEDSIDE FOR CONTINUITY OF CARE, PT IN STABLE CONDITION.
[2019-02-12 20:00] VITALS: BP 116/71
--- NOTE | 2019-02-12 20:00 | NUR ---
PT IN BED AL FALLS AND SEIZURE PRECAUTIONS IN PLACE. V/S FOLLOWS T 97.8 P 100 R 20 B/P 116/71 02 100.
--- NOTE | 2019-02-12 21:00 | NUR ---
PT TURNED, CHANGED AND REPOSITIONED IN BED . IV SITE ON LEFT HAND 22G INTACT AND FLUSHED PATENT. PT GIVEN ALL DUE MEDICATION AT THIS TIME OF TEARS, BUSPAR, KEPPRA, MINOCYCLINE, SENOKOT, SEROQUEL AND HEPARIN. PT ALERT AOX1, WITH SOME ASSISTANCE PT WAS COOPERATIVE, BUT CONFUSED.
[2019-02-13] VITALS: BP 120/73
--- NOTE | 2019-02-13 | NUR ---
PT MOVED TO ROOM 110A. HE HAS SITTER AT BEDSIDE. PT WAS TURNED, CHANGED AND REPOSITIONED IN BED. V/S FOLLOWS T 97.0 P 66 R 18 B/P 120/73 02 97% ON ROOM AIR. PT ALSO GIVEN ORDERED ZOSYN AT THIS TIME. IV SITE INTACT AND FLUSHED PATENT. SITTER REMAINS AT BEDSIDE , WILL CONTINUE TO MONITOR PT FOR SAFETY, SEIZURES ECT. ALL SEIZURE AND FALLS PRECAUTIONS IN PLACE.
[2019-02-13] MEDS: PIPER/TAZO 3.375GM/D5W PREMIX 50 ML IV SCH ×3 (01:00→11:33)
[2019-02-13] MEDS: HYDRAGUARD CREAM TP SCH (01:02)
--- NOTE | 2019-02-13 03:30 | NUR ---
OPT IN BED ALL FALLS AND SEIZURE PRECAUTION IN PLACE.
[2019-02-13 04:00] VITALS: BP 124/75
--- NOTE | 2019-02-13 04:40 | NUR ---
PT TURNED, CHANGED AND REPOSITIONED. IV SITE INTACT AND RUNNING TO KVO ORDERED. IV SITE INTACT WELL. ALL FALLS AND SEIZURE PRECAUTIONS IN PLACE, SITTER AT BEDSIDE.
[2019-02-13] MEDS: CHLORHEXADINE GLUC 2% CLOTH TP SCH (06:00)
[2019-02-13] MEDS: MUPIROCIN CA NASAL 2% 1GM TUBE NS SCH (06:00)
[2019-02-13 06:46] LABS: ANION GAP 13.7 (8-16); CARBON DIOXIDE 28.2 mmol/L (21-32); CREATININE 1.1 mg/dL (0.7-1.3); POTASSIUM 3.9 mmol/L (3.5-5.1)
--- NOTE | 2019-02-13 06:54 | NUR ---
PT IN BED NO S/S OF DISTRESS NOTED, IV SITE INTACT AND FLUSHED PATENT, ZOSYN HUNG ORDERED.
[2019-02-13 06:56] LABS: MAGNESIUM 1.9 mg/dL (1.8-2.4); PHOSPHORUS 4.3 mg/dL (2.5-4.9)
--- NOTE | 2019-02-13 07:15 | NUR ---
RECEIVED BEDSIDE REPORT FROM BAG LINER NURSE, PT IS AWAKE BUT ONLY ALERT TO SELF. PT IS ON ROOM AIR. MULTIPLE PATCHES OF PSORIATIC SKIN NOTED OVER DIFFERENT BODY REGIONS. IV SITE NOTED ON THE L WRIST 20 G, INFUSING NS 50 ML/HR. THERE IS AN AREA OF EXCORIATION NOTED ON PT'S BACK. PT IS ON CONTACT ISOLATION FOR SCABIES. FALL AND SEIZURE PRECAUTIONS IN PLACE. CALL LIGHT IS WITHIN REACH. WILL CONTINUE TO MONITOR.
[2019-02-13 07:21] LABS: BASOPHILS # (AUTO) 0.1 K/uL (0.00-0.22); BASOPHILS % (AUTO) 2.8 % (0.0-2.0); EOSINOPHILS # (AUTO) 0.2 K/uL (0-0.4); EOSINOPHILS % (AUTO) 5.2 % (0.0-4.0); HEMATOCRIT 38.7 % (36-52); HEMOGLOBIN 12.8 g/dL (12.0-18.0); LYMPHOCYTES # (AUTO) 0.7 K/uL (2.0-11.5); LYMPHOCYTES % (AUTO) 15.7 % (20.5-51.1); MEAN CORPUSCULAR HEMOGLOBIN 33 pg (27-31); MEAN CORPUSCULAR HGB CONC 33 g/dL (33-37); MEAN CORPUSCULAR VOLUME 99.4 fL (80-94); MONOCYTES # (AUTO) 0.5 K/uL (0.8-1.0); MONOCYTES % (AUTO) 11.7 % (1.7-9.3); NEUTROPHILS # (AUTO) 2.9 K/uL (1.8-7.7); NEUTROPHILS % (AUTO) 64.6 % (42.2-75.2); PLATELET COUNT (AUTO) 239 K/uL (140-450); RED BLOOD CELL COUNT(AUTO) 3.89 MIL/uL (4.20-6.10); RED CELL DISTRIBUTION WIDTH 15.6 % (11.6-13.7); WHITE BLOOD COUNT (AUTO) 4.5 K/uL (4.8-10.8)
--- NOTE | 2019-02-13 07:30 | NUR ---
REPORT AT BEDSIDE TO LUCAS TAYLOR DAYSHIFT NURSE AT BEDSIDE, PT IN STABLE CONDITION.
[2019-02-13 08:00] VITALS: BP 117/83
--- NOTE | 2019-02-13 09:03 | NUR ---
CONTACTED [facility] AT [phone], LEFT VOICEMAIL TO MARIA C YOUNG (ROLL OVER LOADER).
[2019-02-13] MEDS: MONTELUKAST SODIUM 10 MG TAB PO SCH (09:38)
[2019-02-13] MEDS: LACTOBACILLUS RHAMNOSUS GG 1 EACH CAP PO SCH (09:38)
[2019-02-13] MEDS: TAMSULOSIN 0.4 MG CAP PO SCH (09:38)
[2019-02-13] MEDS: PANTOPRAZOLE 40 MG TABEC PO SCH (09:38)
[2019-02-13] MEDS: levETIRAcetam 500 MG TAB PO SCH (09:38)
[2019-02-13] MEDS: QUEtiapine FUMARATE 25 MG TAB PO SCH (09:39)
[2019-02-13] MEDS: SENNA 8.6 MG TAB PO SCH (09:39)
[2019-02-13] MEDS: busPIRone 5 MG TAB PO SCH (09:39)
[2019-02-13] MEDS: MINOCYCLINE 100MG CAPSULE PO SCH (09:42)
--- NOTE | 2019-02-13 09:45 | NUR ---
SPOKE TO MARIA C YOUNG (EMERGENCY MANAGEMENT CONSULTANT FOR [facility]) AT BEDSIDE REGARDING ISOLATION CONCERNS AND PLAN TO TRANSFER PATIENT TO A SNF, SHE STATED THAT PATIENT HAS HIS OWN ROOM AND IS ABLE TO TAKE CARE OF THE PATIENT. SHE ALSO STATED "HE NEEDS TO COME HOME TO US." DR RALPH MADE AWARE.
[2019-02-13] MEDS: POLYVINYL ALCOHOL 1.4% OP 15 ML SOL BOTH EYES SCH (09:53)
[2019-02-13] MEDS: HYDROCORTISONE 2.5% OINT 30 GM TUBE TP SCH (09:53)
[2019-02-13] MEDS: WITCH HAZEL 40 PAD PACKAGE TP SCH (09:53)
[2019-02-13] MEDS: TRIAMCINOLONE 0.1% OINT 15 GM TUBE TP SCH (09:53)
--- NOTE | 2019-02-13 09:55 | NUR ---
SCHEDULED AM MEDS ADMINISTERED WITH [employer], PT TOLERATED WELL. ORDERED OINTMENTS APPLIED TO APPROPRIATE SKIN AREAS. CAREGIVER MARIA C AT BEDSIDE.
[2019-02-13] MEDS ORDERED: QUET25TA46 PO (10:18)
[2019-02-13] MEDS ORDERED: CHLO118S2 TP (10:18)
[2019-02-13] MEDS ORDERED: MUPI2CRE22 NS (10:18)
[2019-02-13] MEDS ORDERED: NITR100C7 PO (10:18)
[2019-02-13] MEDS ORDERED: LACT10CA PO (10:18)
[2019-02-13] MEDS ORDERED: KEP500 PO (10:18)
[2019-02-13] MEDS ORDERED: [UNRECOGNIZED DRUG - OTHER] MC (11:46)
--- NOTE | 2019-02-13 13:15 | NUR ---
PT HAS DISCHARGED BACK TO HIS BOARD AND CARE. CAREGIVER MARIA C PICKED HIM UP. DISCHARGE INSTRUCTIONS AND PRESCRIPTION WERE EXPLAINED TO MARIA C, SHE VERBALIZED UNDERSTANDING. IV SITE AND WRIST BANDS WERE REMOVED. PT'S OWN MEDS RETURNED TO HIM FROM PHARMACY. DISCHARGE PICTURES TAKEN OF THE AFFECTED SKIN AREAS. PT LEFT WITH ALL HIS BELONGINGS IN STABLE CONDITION.
== END 2019-02-13 13:15 | disposition home or self-care (01) | DRG 100 ==
LOC: MED 13:57 → MTU 17:15
PROVIDERS: ADMIT General Practice; ATTEND General Practice
DX: G40.909 Epilepsy, unspecified, not intractable, without status epilepticus (principal); J69.0 Pneumonitis due to inhalation of food and vomit; E43 Unspecified severe protein-calorie malnutrition; N39.0 Urinary tract infection, site not specified; E87.0 Hyperosmolality and hypernatremia; G90.8 Other disorders of autonomic nervous system; Z68.24 Body mass index [BMI] 24.0-24.9, adult; N40.0 Benign prostatic hyperplasia without lower urinary tract symptoms; R31.9 Hematuria, unspecified; I65.23 Occlusion and stenosis of bilateral carotid arteries; Q90.9 Down syndrome, unspecified; L98.9 Disorder of the skin and subcutaneous tissue, unspecified; F03.90 Unspecified dementia, unspecified severity, without behavioral disturbance, psychotic disturbance, mood disturbance, and anxiety; T14.8XXA Other injury of unspecified body region, initial encounter; X58.XXXA Exposure to other specified factors, initial encounter; Y93.89 Activity, other specified; Y92.89 Other specified places as the place of occurrence of the external cause; Y99.8 Other external cause status; B95.62 Methicillin resistant Staphylococcus aureus infection as the cause of diseases classified elsewhere
CPT/HCPCS: 36415; 70450; 71045; 76700; 80048; 80053; 80305; 81001; 82140; 82150; 82272; 82550; 83036; 83605; 83690; 83735; 83880; 84100; 84134; 84436; 84443; 84484; 85025; 85610; 85730; 87040; 87081; 87086; 87186; 92610; 93005; 93880; 97110; 97116; 97161-GP; 97530; 99285; G0480; G0482; J0696; J1630; J1644; J1953; J2060; J2543; J7030; J7042; J7060; J8610; Q0092